=== PATIENT | male | born 1955 | race Caucasian/White ===

== ENCOUNTER 2020-05-12 10:07 | Day surgery (SDC) | payer OTHER ==
[~2020-05-12] VITALS: Ht 180.3 cm; Wt 70.5 kg
[2020-05-12 11:24] LABS: BASOPHILS % (AUTO) 2 % (0-1); EOSINOPHILS % (AUTO) 3 % (1-7); LYMPHOCYTES % (AUTO) 36 % (22-44); MEAN CORPUSCULAR HEMOGLOBIN 31.5 pg (27.5-34.5); MEAN CORPUSCULAR HGB CONC 33.8 g/dL (33.2-36.2); MEAN PLATELET VOLUME 8.7 fL (7.4-10.4); MONOCYTES % (AUTO) 8 % (2-9); NEUTROPHILS % (AUTO) 51 % (42-75); PLATELET COUNT 217 x10^3/uL (130-400); RED BLOOD COUNT 4.24 x10^6/uL (4.38-5.82); RED CELL DISTRIBUTION WIDTH 13.9 % (9.4-14.8)
[2020-05-12 11:25] LABS: MD NO
[2020-05-12] MEDS ORDERED: LIOT5TAB11 PO (11:26)
[2020-05-12] MEDS ORDERED: Magnesium PO (11:26)
[2020-05-12] MEDS ORDERED: LEVO100T5 PO (11:26)
[2020-05-12] MEDS ORDERED: UBIQ100C3 PO (11:32)
[2020-05-12] MEDS ORDERED: SAW PALMETTO PO (11:32)
[2020-05-12] MEDS ORDERED: MULT-658 PO (11:32)
[2020-05-12] MEDS ORDERED: CHOL10003 PO (11:32)
[2020-05-12] MEDS ORDERED: Zinc PO (11:32)
[2020-05-12] MEDS ORDERED: Vitamin C PO (11:32)
[2020-05-12] MEDS ORDERED: ASPI81TA45 PO (11:32)
[2020-05-12] MEDS ORDERED: Black Seed Oil PO (11:32)
[2020-05-12] MEDS ORDERED: [UNRECOGNIZED DRUG - OTHER] PO (11:32)
[2020-05-12] MEDS ORDERED: VITA1TAB19 PO (11:32)
[2020-05-12] MEDS ORDERED: GLUC1TAB91 PO (11:32)
[2020-05-12] MEDS ORDERED: L.AC1CAP6 PO (11:32)
[2020-05-12] MEDS ORDERED: Chromium Picolinate PO (11:32)
[2020-05-12 11:33] VITALS: BP 118/71
[2020-05-12 11:34] LABS: ANION GAP 5 mmol/L (5-15); CALCIUM 8.7 mg/dL (8.5-10.1); CHLORIDE 108 mmol/L (98-107); CREATININE 0.93 mg/dL (0.7-1.3)
[2020-05-12] MEDS ORDERED: MIDAZOLAM 1 MG/ML, 5ML ONE (11:59)
[2020-05-12] MEDS ORDERED: TICAGRELOR 90 MG TABLET ONE (11:59)
[2020-05-12] MEDS ORDERED: FENTANYL PF 100 MCG/2ML ONE (11:59)
[2020-05-12] MEDS ORDERED: BIVALIRUDIN 250 MG ONE (12:00)
[2020-05-12] MEDS ORDERED: NITROGLYCERIN 5 MG/ML, 10ML ONE (12:00)
[2020-05-12] MEDS ORDERED: LIDOCAINE 2%, 20ML ONE (12:00)
[2020-05-12] MEDS ORDERED: VERAPAMIL 2.5 MG/ML, 2ML ONE (12:00)
[2020-05-12] MEDS ORDERED: HEPARIN 1,000 UNITS/ML, 10ML ONE (12:00)
[2020-05-12] MEDS ORDERED: SODIUM CHLORIDE 0.9% 1,000 ML IV SCH (14:00)
== END 2020-05-12 15:10 | disposition home or self-care (01) ==
LOC: CACL 10:07
PROVIDERS: ATTEND Internal Medicine Cardiovascular Disease
DX: I20.9 Angina pectoris, unspecified (principal); R93.1 Abnormal findings on diagnostic imaging of heart and coronary circulation; Z88.8 Allergy status to other drugs, medicaments and biological substances
CPT/HCPCS: 36415; 80048; 85025; 93458; 99156; C1769; C1894; J1644; J2250; J3010; Q9967; J0583